=== PATIENT | female | born 1995 | race Caucasian/White ===

== ENCOUNTER 2017-03-07 02:23 | Emergency (ER) | payer OTHER ==
[2017-03-07 02:36] VITALS: TEMP 98.1
--- NOTE | 2017-03-07 03:35 | EDPHY ---
H & P Stated Complaint: stuck tampon HPI/ROS: HPI CHIEF COMPLAINT: "I lost my Tampon" HISTORY OF PRESENT ILLNESS: This patient 22-year-old female otherwise healthy, denies significant medical history. She states she placed a tampon around 7:45 p.m. last night went to the bathroom 1145 was unable to locate the tampon. She is unsure fell out. She is unsure if it is still in her vagina. She denies any abdominal pain fever vomiting. Past Medical History: No medical history Past Surgical History: No surgical Social History: Denies daily use of drugs alcohol tobacco products. Family History: Noncontributory ROS REVIEW OF SYSTEMS: A comprehensive 10 point review of systems is otherwise negative aside from elements mentioned in the history of present illness. Exam Constitutional triage nursing summary reviewed, vital signs reviewed, awake/ alert. Eyes normal conjunctivae and sclera, EOMI, PERRLA. HENT normal inspection, atraumatic, moist mucus membranes, no epistaxis, neck supple/ no meningismus, no raccoon eyes. Respiratory clear to auscultation bilaterally, normal breath sounds, no respiratory distress, no wheezing. Cardiovascular rate normal, regular rhythm, no murmur, no edema, distal pulses normal. Gastrointestinal soft, non-tender, no rebound, no guarding, normal bowel sounds, no distension, no pulsatile mass. Genitourinary no CVA tenderness. Musculoskeletal no midline vertebral tenderness, full range of motion, no calf swelling, no tenderness of extremities, no meningismus, good pulses, neurovascularly intact. Skin pink, warm, & dry, no rash, skin atraumatic. Neurologic awake, alert and oriented x 3, AAOx3, moves all 4 extremities equally, motor intact, sensory intact, CN II-XII intact, normal cerebellar, normal vision, normal speech. Psychiatric normal mood/affect. Heme/Lymph/Immune no lymphadenopathy. Differential Diagnosis: Retained tampon, loss tampon. Medical Decision Making: Plan for this patient pelvic exam to evaluate for retained tampon. Re-evaluation: [id number]: Pelvic exam performed. Jovita COBURN at bedside. Blood in the posterior vault and vagina. No tampons visualized. Cervix visualized. Dark blood at the cervix. No visible tampon. Patient has no abdominal pain. No tampon that is retain. She can go home. Return emergency room if there is worsening symptoms questions or concerns. She understands Source: Patient - Personal History LMP (Females 10-55): Now Current Tetanus/Diphtheria Vaccine: Yes Current Tetanus Diphtheria and Acellular Pertussis (TDAP): Yes - Medical/Surgical History Hx Asthma: No Hx Chronic Respiratory Disease: No Hx Diabetes: No Hx Cardiac Disease: No Hx Renal Disease: No Hx Cirrhosis: No Hx Alcoholism: No Hx HIV/AIDS: No Hx Splenectomy or Spleen Trauma: No Other PMH: ciliac - Social History Smoking Status: Never smoked Constitutional: Initial Vital Signs Temperature (C) 36.7 C 03/07/17 02:34 Heart Rate 67 03/07/17 02:34 Respiratory Rate 16 03/07/17 02:34 Blood Pressure 107/63 03/07/17 02:34 O2 Sat (%) 97 03/07/17 02:34 O2 Delivery Mode Room Air Allergies/Adverse Reactions: No Known Allergies Allergy (Unverified 03/07/17 02:33) Home Medications: Medication Instructions Recorded Bcp 03/07/17 Departure - Departure Disposition: Home, Routine, Self-Care Clinical Impression: Vaginal bleeding Condition: Good Instructions: Dysfunctional Uterine Bleeding (ED) Additional Instructions: 1. You had a pelvic exam in the emergency room. We do not see a retained or tampon still in her vagina. Referrals: NONE *PRIMARY CARE P,. [Primary Care Provider] - As per Instructions
[2017-03-07 04:14] VITALS: BP 103/70; PULSE 73; RESP 18; O2SAT 96
== END 2017-03-07 04:12 | disposition home or self-care (01) ==
DX: N93.9 Abnormal uterine and vaginal bleeding, unspecified (principal)